=== PATIENT | male | born 1980 | race Caucasian/White ===

== ENCOUNTER 2024-01-11 16:24 | Emergency (ER) | payer BC ==
[2024-01-11] MEDS ORDERED: Lidocaine 1% w/Epinephrine 1:100K 20 ML VIAL ONE (17:06)
== END 2024-01-11 20:14 ==
LOC: ERS 16:24
DX: S01.01XA Laceration without foreign body of scalp, initial encounter (principal); I10 Essential (primary) hypertension; W20.8XXA Other cause of strike by thrown, projected or falling object, initial encounter
CPT/HCPCS: 12004; 70450; 72125